=== PATIENT | female | born 2000 | race Caucasian/White ===

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

== ENCOUNTER → 2019-05-19 22:35 | Observation (INO) ==
[2019-05-19 20:35] LABS: Bilirubin,Urine Negative (Negative); Blood,Urine Negative (Negative); Clarity,Urine Cloudy (Clear); Color,Urine Yellow (Yellow); Glucose,Urine (UA) Normal (Normal); Ketones,Urine Negative (Negative); Leukocyte Esterase,Urine Small (Negative); Nitrite,Urine Negative (Negative); PH,Urine 6.5 pH Units (5.0-8.0); Protein,Urine Negative (Neg-Trace); Specific Gravity,Urine 1.027 (1.010-1.025); Urobilinogen,Urine Normal (Normal)
[2019-05-19 20:36] LABS: Bacteria,Urine Moderate per hpf (None-Few); Hyaline Casts,Urine None Seen per lpf (None-Few); RBC,Urine 0-3 per hpf (0-3); Squamous Epithelial Cell,Urine Many per lpf (None-Few)
[2019-05-19 20:46] LABS: Amphetamine Screen,Urine Negative ng/mL (Cutoff=1000); Barbiturate Screen,Urine Negative ng/mL (Cutoff=200); Benzodiazepines Screen,Urine Negative ng/mL (Cutoff=200); Cannabinoid Screen,Urine Negative ng/mL (Cutoff = 50); Cocaine Screen,Urine Negative ng/mL (Cutoff= 300); Opiate Screen,Urine Negative ng/mL (Cutoff=300); Phencyclidine Screen,Urine Negative ng/mL (Cutoff=25)
[2019-05-19 22:06] LABS: Candida DNA Not Detected (Not Detect); Gardnerella DNA DETECTED (Not Detect); Trichomonas DNA Not Detected (Not Detect)
--- NOTE | 2019-05-19 22:31 | Discharge Summary ---
Date of Encounter: 05/19/19 Time of Encounter: 22:30 - Discharge Diagnosis (1) 27 weeks gestation of Priority: Primary Status: Acute Comments: Follow-up with midwives as scheduled Discharge home (2) Bacterial vaginosis in Priority: Secondary Status: Acute Comments: Flagyl prescribed - Discharge Medications Prescriptions: New metroNIDAZOLE [Metronidazole] 500 mg PO BID 7 Days #14 tablet Continued Pnv No.95/Ferrous Fum/Folic AC [ Caplet] 1 tab PO DAILY Home Medications: Pnv No.95/Ferrous Fum/Folic AC [ Caplet] 1 tab PO DAILY 05/19/19 [History] metroNIDAZOLE [Metronidazole] 500 mg PO BID 7 Days #14 tablet 05/19/19 [Rx] Allergies/Adverse Reactions: Allergy/AdvReac Type Severity Reaction Status Date / Time Erythromycin Base Allergy Swelling Verified 05/19/19 20:24 of Lip/Tongue/Throat Data Procedures and tests throughout hospitalization: Laboratory Tests 05/19/19 05/19/19 05/19/19 20:20 20:20 21:02 Urine Color Yellow Urine Clarity Cloudy A Urine pH 6.5 Ur Specific [place] 1.027 H Urine Protein Negative Urine Glucose (UA) Normal Urine Ketones Negative Urine Blood Negative Urine Nitrite Negative Urine Bilirubin Negative Urine Urobilinogen Normal Ur Leukocyte Esterase Small H Urine Microscopic RBC 0-3 Urine Microscopic WBC 5-15 H Ur Squamous Epith Cells Many H Urine Bacteria Moderate H Hyaline Casts None Seen Ur Culture Indicated? YES A Urine Opiates Screen Negative Ur Buprenorphine Scrn Negative Ur Barbiturates Screen Negative Ur Phencyclidine Scrn Negative Ur Amphetamines Screen Negative U Benzodiazepines Scrn Negative Urine Cocaine Screen Negative U Marijuana (THC) Screen Negative Ur Drug Screen Interp See Below Abigail species DNA Not Detected Gardnerella DNA Probe DETECTED A Trichomonas DNA Probe Not Detected Labs on day of discharge: Labs from last 24 hours 05/19/19 05/19/19 05/19/19 21:02 20:20 20:20 Urine Color Yellow Urine Clarity Cloudy A Urine pH 6.5 Ur Specific [place] 1.027 H Urine Protein Negative Urine Glucose (UA) Normal Urine Ketones Negative Urine Blood Negative Urine Nitrite Negative Urine Bilirubin Negative Urine Urobilinogen Normal Ur Leukocyte Esterase Small H Urine Microscopic RBC 0-3 Urine Microscopic WBC 5-15 H Ur Squamous Epith Cells Many H Urine Bacteria Moderate H Hyaline Casts None Seen Ur Culture Indicated? YES A Urine Opiates Screen Negative Ur Buprenorphine Scrn Negative Ur Barbiturates Screen Negative Ur Phencyclidine Scrn Negative Ur Amphetamines Screen Negative U Benzodiazepines Scrn Negative Urine Cocaine Screen Negative U Marijuana (THC) Screen Negative Ur Drug Screen Interp See Below Abigail species DNA Not Detected Gardnerella DNA Probe DETECTED A Trichomonas DNA Probe Not Detected Date of admission: 05/19/19 20:11 Discharging clinician: Bailee Samuel Anticipated date of discharge: 05/19/19 - Patient Status Disposition: Home, Self-Care Condition: Good Functional capacity at discharge: independent ambulation Overall status at discharge: patient is progressing back to baseline - Discharge Instructions Follow Up With: Bailee Samuel [Advanced Practice Nurse] - - Diet and Activity Activity: increase activity as tolerated Diet: regular diet 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 She spoke with medical office rep yesterday who advised her to present to labor and delivery which she did not do until tonight. She reports last intercourse was 148 hours ago. She denies itching, burning, dysuria. Fern and nitrazine with were negative. Vaginosis panel positive for bacterial vaginosis. Prescription for Flagyl given and patient discharged home in stable condition with appropriate follow-up. Time Attestation: Total time spent providing and/or coordinating discharge services: Time Spent: Less than 30 minutes Exam - Constitutional General appearance IM: A&O X 3, morbidly obese, pleasant, no acute distress, answers questions appropriately - Respiratory Respiratory exam: Present: CTAB - Cardiovascular Cardiovascular exam IM: Present: RRR, +S1, +S2 - GI/Abdominal GI/Abdominal exam IM: normal bowel sounds, no peritoneal signs - Rectal Rectal exam: deferred - Uterine Tone: Firm - Extremities Exam Extremities exam IM: Present: full ROM, normal capillary refill, normal inspection, radial pulses palpable and symmetrical - Neurological Exam Neurological exam: alert, CN II-XII intact, normal gait, oriented X3, reflexes normal, no focal deficits, strengths equal and symetr throughout - VTE Reasons for not Prescribing Prophylaxis: Treatment not Indicated - Low risk for VTE
== END | disposition home or self-care (01) ==
LOC: 1NENULAB
PROVIDERS: ADMIT Advanced Practice Midwife; ATTEND Advanced Practice Midwife

== ENCOUNTER → 2019-07-08 21:31 | Observation (INO) ==
--- NOTE | 2019-07-08 20:35 | OB/GYN Progress Note ---
Date of Encounter: 07/08/19 Time of Encounter: 20:32 - Assessment and Plan (1) 34 weeks gestation of Current Visit: Yes Status: Acute NST reactive Urinalysis - ketonees; encouraged to eat more and use immodium for diarrhea Discharge home with labor precautions Follow up in office with routine care and PRN POC per consult with Dr Johnson (2) NST (non-stress test) reactive on surveillance Current Visit: Yes Status: Acute Subjective - Subjective Principal diagnosis: contractions Interval history: Ms Amos is a at 34 weeks and 3 days gestation that presents to triage with c/o contractions that began several days ago that resolved after rest and oral hydration. She states that her contractions began again this evening, but she has been having diarrhea for a few days; she is not able to quantify them when asked. She states positive movement. She denies headaches, visual disturbances, epigastric pain, leaking of fluid, and vaginal bleeding. She has had an uncomplicated and is seen by the midwives for her care. Antepartum ROS: movement normal, contractions Objective - Vital Signs Vital Signs: Intake and Output 07/08/19 07/08/19 07/08/19 07:59 15:59 23:59 Other: Weight 55.8 kg Patient Weight 07/08/19 23:59 Weight 55.8 kg - Exam FHR: auscultation normal, category 1 FHR comments: Baseline 145 moderate variability with >15 x 15 accels, and no decels. No contractions on monitor or palpation. Abdomen: Present: normal appearance, soft, gravid Uterus: Present: normal. Absent: firm, tenderness
[2019-07-08 20:37] LABS: Bilirubin,Urine Negative (Negative); Blood,Urine Negative (Negative); Clarity,Urine Clear (Clear); Color,Urine Yellow (Yellow); Glucose,Urine (UA) Normal (Normal); Ketones,Urine 40 mg/dL (Negative); Leukocyte Esterase,Urine Small (Negative); Nitrite,Urine Negative (Negative); Protein,Urine Negative (Neg-Trace); Specific Gravity,Urine 1.023 (1.010-1.025); Urobilinogen,Urine Normal (Normal)
[2019-07-08 20:40] LABS: Bacteria,Urine Moderate per hpf (None-Few); Hyaline Casts,Urine None Seen per lpf (None-Few); Squamous Epithelial Cell,Urine Many per lpf (None-Few)
[2019-07-08 20:47] LABS: Amphetamine Screen,Urine Negative ng/mL (Cutoff=1000); Barbiturate Screen,Urine Negative ng/mL (Cutoff=200); Benzodiazepines Screen,Urine Negative ng/mL (Cutoff=200); Cannabinoid Screen,Urine Negative ng/mL (Cutoff = 50); Cocaine Screen,Urine Negative ng/mL (Cutoff= 300); Opiate Screen,Urine Negative ng/mL (Cutoff=300); Phencyclidine Screen,Urine Negative ng/mL (Cutoff=25)
== END | disposition home or self-care (01) ==
LOC: 1NENULAB
PROVIDERS: ADMIT Advanced Practice Midwife; ATTEND Advanced Practice Midwife

== ENCOUNTER → 2019-08-05 19:04 | Observation (INO) | END | disposition home or self-care (01) | LOC: 1NENULAB | PROVIDERS: ADMIT Registered Nurse; ATTEND Registered Nurse ==

== ENCOUNTER 2019-08-06 06:07 | Inpatient (IN) ==
[~2019-08-06 06:07] MED LIST: *HR* Nalbuphine 10 MG/ML AMPUL IVP PRN; Famotidine 20 MG/2 ML VIAL IVP PRN; Lidocaine 1% 20 ML MDV INFILT PRN; Metoclopramide 10 MG/2 ML VIAL IVP PRN; Naloxone 0.4 MG/ML INJ IVP PRN; Ondansetron 4 MG/2 ML VIAL IVP PRN; Ringers Solution, Lactated 1,000 ML IVC SCH; Ringers Solution, Lactated 1,000 ML ONE
[2019-08-06 06:16] LABS: White Blood Count 22.4 K/mcL (4.3-11.1)
[2019-08-06 06:17] LABS: Basophils # 0.1 K/mcL (0.0-0.2); Basophils % 0.4 %; Eosinophils # 0.3 K/mcL (0.0-0.6); Eosinophils % 1.3 %; Hematocrit 34.8 % (35.3-44.9); Hemoglobin 11.7 g/dL (11.5-15.4); Immature Granulocytes % 1.4 % (0-4); Lymphocytes % 17.9 %; Mean Corpuscular HGB Conc 33.6 g/dL (31.6-35.5); Mean Corpuscular Volume 89.2 fL (83.0-100.0); Mean Platelet Volume 10.1 fL (9.4-12.4); Monocytes # 1.8 K/mcL (0.0-1.3); Monocytes % 7.9 %; Neutrophils # 15.9 K/mcL (1.6-8.9); Platelet Count 334 K/mcL (140-400); Red Cell Distribution Width 14.2 % (11.5-14.5); Segmented Neutrophils % 71.1 %
[2019-08-06] MEDS ORDERED: Ibuprofen 600 MG TABLET PO PRN (09:55)
[2019-08-06] MEDS ORDERED: Acetaminophen 325 MG TABLET PO PRN (09:55)
[2019-08-06] MEDS ORDERED: Prenatal Vit/FA 1 EACH TABLET PO SCH (09:55)
[2019-08-06] MEDS ORDERED: Oxytocin 20 units/ LR 1000 mL 20 UNIT/1,000 ML BAG IVC SCH (09:55)
[2019-08-06] MEDS ORDERED: Rho Immune Globulin 1,500 UNIT SYRINGE IM PRN (09:55)
[2019-08-07 08:11] VITALS: BP 87/53
[2019-08-07] MEDS ORDERED: Benzocaine/Menthol 56 GM AEROSOL SPRAY TP PRN (10:29)
[2019-08-07] MEDS ORDERED: Benzocaine/Menthol 56 GM AEROSOL SPRAY TP ONE (10:32)
== END 2019-08-07 15:13 | disposition home or self-care (01) | DRG 560 ==
LOC: 1NENULAB → 1NENUOBS 09:44
PROVIDERS: ADMIT Registered Nurse; ATTEND Registered Nurse

== ENCOUNTER 2022-07-18 01:54 | Inpatient (IN) ==
[2022-07-18] MEDS ORDERED: *HR* FentaNYL (PF) 100 MCG/2 ML VIAL IVP PRN (01:59)
[2022-07-18] MEDS ORDERED: Ondansetron 4 MG/2 ML VIAL IVP PRN (01:59)
[2022-07-18] MEDS ORDERED: Famotidine 20 MG/2 ML VIAL IVP PRN (01:59)
[2022-07-18] MEDS ORDERED: Azithromycin 500 MG in 0.9 % Sodium Chloride 250 ML IVPB PRN (01:59)
[2022-07-18] MEDS ORDERED: *HR* Nalbuphine 10 MG/ML AMPUL IV PRN (01:59)
[2022-07-18] MEDS ORDERED: Metoclopramide 10 MG/2 ML VIAL IVP PRN (01:59)
[2022-07-18] MEDS ORDERED: Naloxone 0.4 MG/ML INJ IVP PRN (01:59)
[2022-07-18] MEDS ORDERED: Lidocaine 1% 20 ML MDV INFILT PRN (01:59)
[2022-07-18] MEDS ORDERED: Ringers Solution, Lactated 1,000 ML IVC SCH (02:00)
[2022-07-18 02:31] LABS: Amphetamine Screen,Urine Negative ng/mL (Cutoff=1000); Barbiturate Screen,Urine Negative ng/mL (Cutoff=200); Benzodiazepines Screen,Urine Negative ng/mL (Cutoff=200); Cannabinoid Screen,Urine Negative ng/mL (Cutoff = 50); Cocaine Screen,Urine Negative ng/mL (Cutoff= 300); Opiate Screen,Urine Negative ng/mL (Cutoff=300); Phencyclidine Screen,Urine Negative ng/mL (Cutoff=25)
[2022-07-18 02:32] LABS: Bacteria,Urine Few per hpf (None-Few); Bilirubin,Urine Negative (Negative); Blood,Urine Large (Negative); Clarity,Urine Turbid (Clear); Color,Urine Yellow (Yellow); Glucose,Urine (UA) Normal (Normal); Ketones,Urine 10 mg/dL (Negative); Leukocyte Esterase,Urine Large (Negative); Mucus,Urine Few per lpf (None-Few); Nitrite,Urine Negative (Negative); PH,Urine 7.5 pH Units (5.0-8.0); Protein,Urine 70 mg/dL (Neg-Trace); Specific Gravity,Urine 1.028 (1.010-1.025); Squamous Epithelial Cell,Urine Many per hpf (None-Few); WBC,Urine TNTC per hpf (0-3)
[2022-07-18 02:34] LABS: Basophils # 0.1 K/mcL (0.0-0.2); Basophils % 0.4 %; Eosinophils # 0.2 K/mcL (0.0-0.6); Eosinophils % 0.9 %; Hematocrit 36.1 % (35.3-44.9); Hemoglobin 11.8 g/dL (11.5-15.4); Immature Granulocytes % 0.9 % (0-4); Lymphocytes % 17.6 %; Mean Corpuscular HGB Conc 32.7 g/dL (31.6-35.5); Mean Corpuscular Hemoglobin 29.4 pg (28.0-33.3); Mean Corpuscular Volume 89.8 fL (83.0-100.0); Mean Platelet Volume 10.3 fL (9.4-12.4); Monocytes # 1.4 K/mcL (0.0-1.3); Neutrophils # 16.8 K/mcL (1.6-8.9); Platelet Count 395 K/mcL (140-400); Red Blood Count 4.02 M/mcL (3.82-4.97); Red Cell Distribution Width 13.4 % (11.5-14.5); Segmented Neutrophils % 74.2 %; White Blood Count 22.7 K/mcL (4.3-11.1)
[2022-07-18] MEDS ORDERED: Oxytocin 30 UNIT/503 ML BAG IVC ONE (04:20)
[2022-07-18] MEDS ORDERED: Ondansetron ODT 4 MG TAB.RAPDIS SL PRN (08:39)
[2022-07-18] MEDS ORDERED: OXYTOCIN/RINGERS LACTATE 10 UNIT/166.6 ML BAG IVC ONE (08:39)
[2022-07-18] MEDS ORDERED: Lanolin 7 G OINT...G. TP PRN (08:39)
[2022-07-18] MEDS ORDERED: Oxytocin 30 UNIT/503 ML BAG IVC SCH (08:39)
[2022-07-18] MEDS ORDERED: Rho Immune Globulin 1,500 UNIT SYRINGE IM PRN (08:39)
[2022-07-18] MEDS ORDERED: Benzocaine/Menthol 56 GM AEROSOL SPRAY TP PRN (08:39)
[2022-07-18] MEDS: Prenatal Vit/FA 1 EACH TABLET PO SCH (09:09)
[2022-07-18] MEDS: Acetaminophen 325 MG TABLET PO SCH ×2 (09:10→23:50)
[2022-07-18] MEDS: Ibuprofen 600 MG TABLET PO SCH ×2 (09:10→23:50)
[2022-07-19] MEDS: Prenatal Vit/FA 1 EACH TABLET PO SCH (09:46)
[2022-07-19] MEDS: Acetaminophen 325 MG TABLET PO SCH (09:47)
[2022-07-19 22:23] VITALS: TEMP 97.7
[2022-07-20 07:27] VITALS: BP 102/69; PULSE 76; O2SAT 99
[2022-07-20] MEDS: Acetaminophen 325 MG TABLET PO SCH (08:08)
[2022-07-20] MEDS: Prenatal Vit/FA 1 EACH TABLET PO SCH (08:08)
[2022-07-20] MEDS: Ibuprofen 600 MG TABLET PO SCH (08:08)
== END 2022-07-20 14:07 | disposition home or self-care (01) | DRG 560 ==
LOC: 1NENULAB → 1NENUOBS 07:50
PROVIDERS: ADMIT Registered Nurse; ATTEND Registered Nurse